=== PATIENT | female | born 1945 ===

== ENCOUNTER 2016-10-10 10:45 | Inpatient (IN) | payer MEDICAID, OTHER ==
[~2016-10-10 10:45] MED LIST: Enoxaparin 40 mg Syringe ONE; cefTRIAXone (Rocephin) 1 gm Inj ONE
[2016-10-10] MEDS ORDERED: Sodium Chloride 0.9% 1,000 ML IV STA (12:26)
[2016-10-10] MEDS ORDERED: cefTRIAXone (Rocephin) 1 gm Inj ONE (12:56)
[2016-10-10 13:30] LABS: SQUAMOUS EPITHIAL 3 /hpf (0-5); URINE BACTERIA RARE (<OCC); URINE BILIRUBIN NEGATIVE (NEGATIVE); URINE BLOOD SMALL (NEGATIVE); URINE CLARITY SLIGHTY-CLOUDY (Clear); URINE COLOR YELLOW (YELLOW); URINE GLUCOSE (UA) NEG (Normal); URINE LEUKOCYTE ESTERASE SMALL Leu/uL (Negative); URINE NITRATE NEGATIVE (NEGATIVE); URINE PROTEIN 30 mg/dL (NEGATIVE); URINE UROBILINOGEN 0.2-1.0 mg/dL (0.2-1.0)
[2016-10-10 13:41] LABS: ALBUMIN 4.3 g/dL (3.5-5.0); ALT/SGPT 32 U/L (9-52); AST/SGOT 23 U/L (14-36); BLOOD UREA NITROGEN 12 mg/dl (7-17); CALCIUM 8.8 mg/dL (8.4-10.2); GFR AFRICAN-AMERICAN > 60; GFR NON-AFRICAN AMERICAN 55
[2016-10-10 13:42] LABS: ALB/GLOB RATIO 1.3 (1.0-2.1)
[2016-10-10 13:44] LABS: HEMOGLOBIN 13.5 g/dL (12.0-16.0); MEAN CELL VOLUME 87.9 fl (81.0-99.0); MEAN CORPUSCULAR HEMOGLOBIN 28.2 pg (27.0-31.0); MEAN CORPUSCULAR HGB CONC 32.1 g/dL (33.0-37.0); RBC 4.77 Mil/uL (3.80-5.20); RED CELL DISTRIBUTION WIDTH 15.3 % (11.5-14.5); WHITE BLOOD COUNT 14.7 K/uL (4.8-10.8)
--- NOTE | 2016-10-10 14:20 | CT ---
PROCEDURE: CT Abdomen and Pelvis without intravenous contrast HISTORY: FLANK PAIN COMPARISON: 09/12/2009. TECHNIQUE: Technique. Contrast Dose: Radiation dose: Total exam DLP = 843 mGy-cm. This CT exam was performed using one or more of the following dose reduction techniques: Automated exposure control, adjustment of the mA and/or kV according to patient size, and/or use of iterative reconstruction technique. FINDINGS: LOWER THORAX: Left lower lobe subpleural infiltrate. LIVER: 3.3 centimeter right hepatic hypodense lesion probably a cyst. GALLBLADDER AND BILE DUCTS: Gallstones. PANCREAS: Unremarkable. No gross lesion or ductal dilatation. SPLEEN: Unremarkable. ADRENALS: Unremarkable. No mass. KIDNEYS AND URETERS: Horseshoe kidney. No urinary tract calculus.. No hydronephrosis. No solid mass. VASCULATURE: Unremarkable. No aortic aneurysm. BOWEL: Unremarkable. No obstruction. No gross mural thickening. APPENDIX: Unremarkable. Normal appendix. PERITONEUM: Unremarkable. No free fluid. No free air. LYMPH NODES: Unremarkable. No enlarged lymph nodes. BLADDER: Unremarkable. REPRODUCTIVE: Unremarkable. BONES: No acute fracture. OTHER FINDINGS: None. IMPRESSION: Left lower lobe pneumonia. Cholelithiasis. Horseshoe kidney. Right hepatic cyst.
[2016-10-10] MEDS: Sodium Chloride 0.9% 1,000 ML IV SCH (18:30)
[2016-10-10] MEDS: Azithromycin 500 MG in Sodium Chloride 0.9% 250 ML IVPB SCH (22:05)
--- NOTE | 2016-10-10 23:16 | CP.PCM.HP ---
History of Present Illness - History of Present Illness History of Present Illness: Hx taken from patient and patients daughters PMD: Dr Skip Carmona Patient is full code Healthcare proxy: Patient has no advance directives: She designates her daughter Marielena Bergman as the main person to make decisions for her in case she is not able to. 71 y/o F with PMhx of COPD, HTN, Horseshoe Kidney presents to ER c/o L/lower back pain and fever since last night. Patient states last night felt nauseated had 2 vomits, fever and lower back pain associated with generalized body aches that resolved today. 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 She states she hasnt eaten anything since last night and has only been drinking water today. According to her daughter her temp at home before coming to ED today was 101.9. She is also having cough since this morning but denies sputum, SOB, CP, palpitations. Patient denies dysuria, change in stools, weakness, vision changes or dizziness. Patient denies Hx of frequent UTI in the past. She has been seen by Nephrology every year and her previous admission to hosp have been due to CPOD exacerbation. ED course: T: 101, HR 101, BP WNL CBC: WBC=14.7 CMP WNL Lactic acid WNL CT abd: Pending UCx and BCx pending Toradol, Motrin, Rocephin, IV fluids PMHx: HTN, COPD, Horseshoe kidney, Hyperthyroidism Present on Admission - Present on Admission Any Indicators Present on Admission: No Review of Systems - EENT Eyes: As Per HPI Nose/Mouth/Throat: Halitosis. absent: Nasal Congestion, Nasal Obstruction - Cardiovascular Cardiovascular: absent: Chest Pain, Palpitations, Pedal Edema - Respiratory Respiratory: Cough. absent: Hemoptysis - Gastrointestinal Gastrointestinal: Nausea, Vomiting - Genitourinary Genitourinary: As Per HPI. absent: Dysuria, Hematuria (L/lower back pain), Urinary Frequency - Musculoskeletal Musculoskeletal: Back Pain - Neurological Neurological: As Per HPI Past Patient History - Infectious Disease Hx of Infectious Diseases: None - Past Social History Smoking Status: Never Smoked - CARDIAC Hx Hypercholesterolemia: Yes Hx Hypertension: Yes - PULMONARY Hx Chronic Obstructive Pulmonary Disease (COPD): Yes - PSYCHIATRIC Hx Substance Use: No Meds Allergies/Adverse Reactions: Allergies Allergy/AdvReac Type Severity Reaction Status Date / Time No Known Allergies Allergy Verified 10/01/14 13:29 Physical Exam - Constitutional Appears: Non-toxic, No Acute Distress - Eye Exam Eye Exam: EOMI, PERRL - ENT Exam ENT Exam: Mucous Membranes Moist - Neck Exam Neck exam: Positive for: Full Rom, Normal Inspection - Respiratory Exam Respiratory Exam: Decreased Breath Sounds (Bibasilar), NORMAL BREATHING PATTERN - Cardiovascular Exam Cardiovascular Exam: REGULAR RHYTHM, +S1, +S2. absent: Gallop, Rubs - GI/Abdominal Exam GI & Abdominal Exam: Normal Bowel Sounds, Soft. absent: Distended, Guarding - Extremities Exam Extremities exam: Positive for: normal inspection. Negative for: calf tenderness, pedal edema - Back Exam Back exam: CVA tenderness (L) (questionable) - Neurological Exam Neurological exam: Alert, CN II-XII Intact, Oriented x3 - Psychiatric Exam Psychiatric exam: Normal Affect, Normal Mood - Skin Skin Exam: Normal Color, Warm Results - Vital Signs Recent Vital Signs: Last Vital Signs Temp 101 F H 10/10/16 11:13 Pulse 101 H 10/10/16 11:13 Resp 20 10/10/16 11:13 BP 123/61 10/10/16 11:13 Pulse Ox 97 10/10/16 11:13 - Labs Result Diagrams: 10/10/16 13:00 10/10/16 13:00 Assessment & Plan - Assessment and Plan (Free Text) Assessment: A&P: 71 y/o F with PMHx of COPD, HTN, Horseshoe Kidney presents to ER c/o L/ lower back pain and fever -SIRS with Sepsis(No severe sepsis, no septic shock) CT abd shows L/lower lobe Pneumonia(Please see full report) Fever, Tachycardia and Leukocytosis Lactic acid WNL qSofa score 0 IV fluids NS 100mls UA: Bacteria rare, Nitrates neg, LE small f/u CBC w/differential next day AM F/U Ucx and BCx -CAP Rocephin 1g IV daily Zithromax 500mg IV daily Zofran 4mg Q6h PRN for nausea/vomiting Diet: NPO. Start liquid diet at dinner and advance as tolerated Toradol 15mg IV q6h PRN for moderate. Severe pain contact Tylenol 650mg q6h PRN for fever -COPD No SOB, O2sat WNL Hold ProAir HFA Duoneb Q6h PRN for SOB Singulair 10mg daily C/w Advair diskus 1 puff BID -HTN essential controlled C/w Valsartan/Amlodipine 160/5mg daily -Hx of Hypercholesterolemia C/W Lovastatin 40mg daily. -Prophylactic measures Lovenox 40mg daily Florastor BID
[2016-10-11] MEDS ORDERED: Albuterol-Ipratrop 3 mg / 0.5 (3 ml) UD INH PRN (04:04)
[2016-10-11] MEDS: Sodium Chloride 0.9% 1,000 ML IV SCH (04:05)
[2016-10-11 08:26] LABS: BASO % 0.2 % (0.0-2.0); EOS % 0.1 % (0.0-4.0); HEMOGLOBIN 12.7 g/dL (12.0-16.0); LYMPH # 1.8 K/uL (1.0-4.3); LYMPH % 10.6 % (20.0-40.0); MEAN CORPUSCULAR HEMOGLOBIN 28.3 pg (27.0-31.0); MEAN CORPUSCULAR HGB CONC 32.2 g/dL (33.0-37.0); MEAN PLATELET VOLUME 10.4 fl (7.2-11.7); NEUT # 14.2 K/uL (1.8-7.0); NEUT % 83.1 % (50.0-75.0); PLATELET COUNT 161 K/uL (130-400); RBC 4.46 Mil/uL (3.80-5.20); RED CELL DISTRIBUTION WIDTH 15.6 % (11.5-14.5); WHITE BLOOD COUNT 17.1 K/uL (4.8-10.8)
[2016-10-11] MEDS: Fluticasone-Salmeterol 500-50mcg Diskus IH SCH ×2 (08:43→20:34)
[2016-10-11] MEDS: Enoxaparin 40 mg Syringe SC SCH (08:45)
[2016-10-11] MEDS: Saccharomyces Boulardi 250 mg Cap PO SCH ×2 (08:45→17:04)
--- NOTE | 2016-10-11 09:16 | CP.PCM.PN ---
Subjective - Date & Time of Evaluation Date of Evaluation: 10/11/16 Time of Evaluation: 08:30 - Subjective Subjective: Patient seen and examined at bedside. She is lying upright in bed comfortably enjoying breakfast. Patient reports mild/moderate left sided back pack which has been associated with and aggravated by a non-productive cough. She has been afebrile since her initial fever of 101.0 in the ED. She further denies fevers, chills, chest pain, sob, abdominal pain, dysuria, nausea or vomiting. Objective - Vital Signs/Intake and Output Vital Signs (last 24 hours): Temp Pulse Resp BP Pulse Ox 98.8 F 74 18 115/68 96 10/11/16 07:59 10/11/16 07:59 10/11/16 07:59 10/11/16 07:59 10/11/16 07:59 - Medications Medications: Current Medications Acetaminophen (Tylenol 325mg Tab) 650 mg PO Q6 PRN PRN Reason: Temp >101 Albuterol/Ipratropium (Duoneb 3 Mg/0.5 Mg (3 Ml) Ud) 3 ml INH RQ6 PRN PRN Reason: Shortness of Breath Enoxaparin Sodium (Lovenox) 40 mg SC DAILY [facility] PRN Reason: Protocol Last Admin: 10/11/16 08:45 Dose: 40 mg Azithromycin 500 mg/ Sodium (Chloride) 250 mls @ 250 mls/hr IVPB Q24H [facility] Last Admin: 10/10/16 22:05 Dose: 250 mls/hr Ceftriaxone Sodium 1 gm/ (Sodium Chloride) 100 mls @ 100 mls/hr IVPB DAILY [facility] Last Admin: 10/11/16 08:46 Dose: 100 mls/hr Ketorolac Tromethamine (Toradol) 15 mg IM Q6 PRN PRN Reason: Pain, moderate (4-7) Montelukast Sodium (Singulair) 10 mg PO DAILY [facility] Last Admin: 10/11/16 08:48 Dose: 10 mg Ondansetron HCl (Zofran Inj) 4 mg IVP Q6 PRN PRN Reason: Nausea/Vomiting Saccharomyces Boulardii (Florastor) 250 mg PO BID [facility] Last Admin: 10/11/16 08:45 Dose: 250 mg Fluticasone/Salmeterol (Advair Diskus 500/50) 1 puff IH Q12 [facility] Last Admin: 10/11/16 08:43 Dose: 1 puff Valsartan (Diovan) 160 mg PO DAILY [facility] Last Admin: 10/11/16 08:44 Dose: 160 mg - Labs Labs: 10/11/16 06:30 - Constitutional Appears: Non-toxic, No Acute Distress - Head Exam Head Exam: ATRAUMATIC, NORMAL INSPECTION, NORMOCEPHALIC - Eye Exam Eye Exam: EOMI - ENT Exam ENT Exam: Mucous Membranes Moist - Respiratory Exam Respiratory Exam: Chest Wall Tenderness (Posterior lower chest wall tenderness) Additional comments: B/L air entry present with crackles localized to left lung base. No wheezing or signs of respiratory distress present. - Cardiovascular Exam Cardiovascular Exam: REGULAR RHYTHM, RRR, +S1, +S2. absent: Murmur - GI/Abdominal Exam GI & Abdominal Exam: Soft, Normal Bowel Sounds. absent: Distended, Tenderness Additional comments: No suprapubic tenderness - Extremities Exam Extremities Exam: absent: Calf Tenderness, Pedal Edema - Back Exam Back Exam: paraspinal tenderness (Left lower thoracic/lumbar ) - Neurological Exam Neurological Exam: Awake, Oriented x3 - Psychiatric Exam Psychiatric exam: Normal Affect, Normal Mood - Skin Skin Exam: Dry, Normal Color, Warm Assessment and Plan - Assessment and Plan (Free Text) Assessment: 71 y/o F with PMH including COPD, HTN, Horseshoe Kidney presented to ER with c/ o left lower back pain and fever x1 day. Due to fever, tachycardia and elevated WBC associated with CT findings of left lower lobe pneumonia, patient was admitted for sepsis due to pneumonia. Her sepsis has since resolved however she continues to experience cough and left lower back pain. Plan: Community Acquired Left lower lobe pneumonia -CT abdomen shows left lower lobe subpleural infiltrate c/w pneumonia -Leukocytosis: 17.1 -Tmax 24 hrs: 101.0 on 10/10/16 @11:13 -Patient currently afebrile -Rocephin 1g IV daily, current day 2 -Zithromax 500mg IV daily, current day 2 -Toradol 10mg PO q6h PRN for moderate pain. Severe pain contact -Tylenol 650mg q6h PRN for fever COPD -Stable without any active SOB -O2 sat WNL -Hold ProAir HFA -Duoneb Q6h PRN for SOB -Singulair 10mg daily -Advair diskus 1 puff BID HTN essential -controlled -Continue Valsartan/Amlodipine 160/5mg daily Hypercholesterolemia -Continue Lovastatin 40mg daily. SIRS with Sepsis (No severe sepsis, no septic shock) -Resolved DVT Prophylaxis -Lovenox 40mg SC daily
--- NOTE | 2016-10-11 09:51 | RAD ---
HISTORY: MD order COMPARISON: Comparison chest 10/28/2015 TECHNIQUE: Chest PA and lateral FINDINGS: LUNGS: There is poorly defined opacity in the left lung base which may represent at atelectasis and/or infiltrate. Small concomitant left effusion not excluded. Central pulmonary vascular slightly congested in appearance PLEURA: No pneumothorax apparent. CARDIOVASCULAR: Normal. OSSEOUS STRUCTURES: No significant abnormalities. VISUALIZED UPPER ABDOMEN: Normal. OTHER FINDINGS: None. IMPRESSION: There is poorly defined opacity in the left lung base which may represent at atelectasis and/or infiltrate. Small concomitant left effusion not excluded. Central pulmonary vascular slightly congested in appearance
[2016-10-11 10:06] LABS: BANDS 9 % (0-2); LYMPHOCYTE 14 % (20-50); METAMYELOCYTE 1 % (0-0); MONOCYTE 5 % (0-10); MYELOCYTE 1 % (0-0); NEUTROPHIL 69 % (42-75); PLATELET ESTIMATE NORMAL (NORMAL); REACTIVE LYMPHOCYTES 1 % (0-0); TOTAL CELLS COUNTED 100
[2016-10-11 10:08] LABS: ANISOCYTOSIS SLIGHT
[2016-10-11 10:09] LABS: GIANT PLATELETS PRESENT; LARGE PLATELETS PRESENT
[2016-10-11] MEDS: Azithromycin 500 MG in Sodium Chloride 0.9% 250 ML IVPB SCH (20:33)
[2016-10-12 06:39] LABS: BASO % 0.3 % (0.0-2.0); EOS # 0.1 K/uL (0.0-0.7); EOS % 0.9 % (0.0-4.0); HEMOGLOBIN 12.3 g/dL (12.0-16.0); LYMPH # 1.7 K/uL (1.0-4.3); MEAN CELL VOLUME 87.8 fl (81.0-99.0); MEAN CORPUSCULAR HEMOGLOBIN 28.3 pg (27.0-31.0); MEAN CORPUSCULAR HGB CONC 32.2 g/dL (33.0-37.0); MEAN PLATELET VOLUME 10.5 fl (7.2-11.7); NEUT # 11.3 K/uL (1.8-7.0); NEUT % 79.8 % (50.0-75.0); RBC 4.36 Mil/uL (3.80-5.20); RED CELL DISTRIBUTION WIDTH 15.6 % (11.5-14.5); WHITE BLOOD COUNT 14.1 K/uL (4.8-10.8)
[2016-10-12 06:51] LABS: BLOOD UREA NITROGEN 10 mg/dl (7-17); CALCIUM 8.7 mg/dL (8.4-10.2); GFR AFRICAN-AMERICAN > 60; GFR NON-AFRICAN AMERICAN 55
--- NOTE | 2016-10-12 06:54 | CP.PCM.PN ---
Subjective - Date & Time of Evaluation Date of Evaluation: 10/12/16 Time of Evaluation: 07:30 - Subjective Subjective: Patient seen and examined at bedside, in no acute distress. Reports fever last night, alleviated by tylenol, persistent intermittent cough, left back/chest / rib pain when she coughs also persists. Otherwise pt is tolerating small meals, has normal urine and stool output. Denies weakness, dizziness, SOB or nausea/ vomiting. Objective - Vital Signs/Intake and Output Vital Signs (last 24 hours): Temp Pulse Resp BP Pulse Ox 99.1 F 84 19 112/71 96 10/12/16 05:09 10/12/16 05:09 10/12/16 05:09 10/12/16 05:09 10/12/16 05:09 Intake and Output: 10/11/16 10/12/16 18:59 06:59 Intake Total 2500 Balance 2500 - Medications Medications: Current Medications Acetaminophen (Tylenol 325mg Tab) 650 mg PO Q6 PRN PRN Reason: Temp >101 Last Admin: 10/11/16 20:28 Dose: 650 mg Albuterol/Ipratropium (Duoneb 3 Mg/0.5 Mg (3 Ml) Ud) 3 ml INH RQ6 PRN PRN Reason: Shortness of Breath Amlodipine Besylate (Norvasc) 5 mg PO DAILY [facility] Last Admin: 10/11/16 10:50 Dose: 5 mg Atorvastatin Calcium (Lipitor) 10 mg PO DAILY [facility] Last Admin: 10/11/16 10:49 Dose: 10 mg Enoxaparin Sodium (Lovenox) 40 mg SC DAILY [facility] PRN Reason: Protocol Last Admin: 10/11/16 08:45 Dose: 40 mg Azithromycin 500 mg/ Sodium (Chloride) 250 mls @ 250 mls/hr IVPB Q24H [facility] Last Admin: 10/11/16 20:33 Dose: 250 mls/hr Ceftriaxone Sodium 1 gm/ (Sodium Chloride) 100 mls @ 100 mls/hr IVPB DAILY [facility] Last Admin: 10/11/16 08:46 Dose: 100 mls/hr Ketorolac Tromethamine (Toradol) 10 mg PO Q6 PRN PRN Reason: Pain, moderate (4-7) Montelukast Sodium (Singulair) 10 mg PO DAILY [facility] Last Admin: 10/11/16 08:48 Dose: 10 mg Ondansetron HCl (Zofran Inj) 4 mg IVP Q6 PRN PRN Reason: Nausea/Vomiting Saccharomyces Boulardii (Florastor) 250 mg PO BID [facility] Last Admin: 10/11/16 17:04 Dose: 250 mg Fluticasone/Salmeterol (Advair Diskus 500/50) 1 puff IH Q12 [facility] Last Admin: 10/11/16 20:34 Dose: 1 puff Valsartan (Diovan) 160 mg PO DAILY [facility] Last Admin: 10/11/16 08:44 Dose: 160 mg - Labs Labs: 10/11/16 06:30 - Constitutional Appears: No Acute Distress - Head Exam Head Exam: ATRAUMATIC, NORMOCEPHALIC - Eye Exam Eye Exam: EOMI, PERRL - ENT Exam ENT Exam: Mucous Membranes Moist - Neck Exam Neck Exam: Full ROM. absent: Lymphadenopathy - Respiratory Exam Respiratory Exam: NORMAL BREATHING PATTERN (with left lower lobe crackles) - Cardiovascular Exam Cardiovascular Exam: REGULAR RHYTHM, +S1, +S2 - GI/Abdominal Exam GI & Abdominal Exam: Soft (obese), Normal Bowel Sounds. absent: Tenderness - Extremities Exam Extremities Exam: Full ROM. absent: Calf Tenderness, Pedal Edema - Back Exam Back Exam: CVA tenderness (L), Full ROM. absent: CVA tenderness (R) - Neurological Exam Neurological Exam: Alert, Awake, CN II-XII Intact, Oriented x3 - Psychiatric Exam Psychiatric exam: Normal Affect, Normal Mood - Skin Skin Exam: Dry, Intact, Warm Assessment and Plan - Assessment and Plan (Free Text) Assessment: 71 y/o F with PMH including COPD, HTN, Horseshoe Kidney presented to ER with c/ o left lower back pain and fever x1 day. Due to fever, tachycardia and elevated WBC associated with CT findings of left lower lobe pneumonia, patient was admitted for sepsis due to pneumonia. Her sepsis has since resolved however she continues to experience cough and left lower back pain, had fever last night of Tmax 101.5 F. Plan: Community Acquired Left lower lobe pneumonia -CT abdomen shows left lower lobe subpleural infiltrate c/w pneumonia -Leukocytosis:14. -Tmax 24 hrs: 101.5 on 10/11/16 @20:30 -Rocephin 1g IV daily, current day 3 -Zithromax 500mg IV daily, current day 3 -Toradol 10mg PO q6h PRN for moderate pain. Severe pain contact MDLaisha -Tylenol 650mg q6h PRN for fever COPD -Stable without any active SOB -O2 sat WNL -Hold ProAir HFA -Duoneb Q6h PRN for SOB -Singulair 10mg daily -Advair diskus 1 puff BID HTN essential -controlled -Continue Valsartan/Amlodipine 160/5mg daily Hypercholesterolemia -Continue Lovastatin 40mg daily. DVT Prophylaxis -Lovenox 40mg SC daily
[2016-10-12] MEDS: Fluticasone-Salmeterol 500-50mcg Diskus IH SCH ×2 (09:08→21:41)
[2016-10-12] MEDS: Saccharomyces Boulardi 250 mg Cap PO SCH ×2 (09:09→16:30)
[2016-10-12] MEDS: Enoxaparin 40 mg Syringe SC SCH (09:10)
[2016-10-12 11:37] LABS: VENOUS BLOOD GAS BASE EXCESS -0.2 mmol/L (0.0-2.0); VENOUS BLOOD GAS PCO2 44 mmHg (40-60); VENOUS BLOOD GAS PO2 19 mm/Hg (30-55); VENOUS BLOOD PH 7.37 (7.32-7.43)
[2016-10-12] MEDS: Azithromycin 500 MG in Sodium Chloride 0.9% 250 ML IVPB SCH (21:42)
[2016-10-13 06:10] LABS: BASO % 0.4 % (0.0-2.0); EOS # 0.2 K/uL (0.0-0.7); EOS % 1.9 % (0.0-4.0); LYMPH # 1.9 K/uL (1.0-4.3); MEAN CELL VOLUME 87.3 fl (81.0-99.0); MEAN CORPUSCULAR HEMOGLOBIN 28.3 pg (27.0-31.0); MEAN CORPUSCULAR HGB CONC 32.4 g/dL (33.0-37.0); MEAN PLATELET VOLUME 10.2 fl (7.2-11.7); MONO # 0.9 K/uL (0.0-0.8); MONO % 7.8 % (0.0-10.0); NEUT # 8.1 K/uL (1.8-7.0); NEUT % 72.9 % (50.0-75.0); RBC 4.26 Mil/uL (3.80-5.20); RED CELL DISTRIBUTION WIDTH 15.3 % (11.5-14.5); WHITE BLOOD COUNT 11.1 K/uL (4.8-10.8)
--- NOTE | 2016-10-13 08:14 | CP.PCM.DIS ---
Provider - Provider Date of Admission: 10/10/16 22:09 Attending physician: Yocasta Sahni MD Primary care physician: Skip Bell Time Spent in preparation of Discharge (in minutes): 30 Diagnosis - Discharge Diagnosis (1) Pneumonia Status: Acute Priority: Low (2) Sepsis Status: Resolved Priority: Low Hospital Course - Lab Results Lab Results: Most Recent Lab Values WBC 11.1 K/uL (4.8-10.8) H 10/13/16 05:00 RBC 4.26 Mil/uL (3.80-5.20) 10/13/16 05:00 Hgb 12.0 g/dL (12.0-16.0) 10/13/16 05:00 Hct 37.1 % (34.0-47.0) 10/13/16 05:00 MCV 87.3 fl (81.0-99.0) 10/13/16 05:00 MCH 28.3 pg (27.0-31.0) 10/13/16 05:00 MCHC 32.4 g/dL (33.0-37.0) L 10/13/16 05:00 RDW 15.3 % (11.5-14.5) H 10/13/16 05:00 Plt Count 194 K/uL (130-400) 10/13/16 05:00 MPV 10.2 fl (7.2-11.7) 10/13/16 05:00 Neut % (Auto) 72.9 % (50.0-75.0) 10/13/16 05:00 Lymph % (Auto) 17.0 % (20.0-40.0) L 10/13/16 05:00 [place] % (Auto) 7.8 % (0.0-10.0) 10/13/16 05:00 Eos % (Auto) 1.9 % (0.0-4.0) 10/13/16 05:00 Baso % (Auto) 0.4 % (0.0-2.0) 10/13/16 05:00 Neut # 8.1 K/uL (1.8-7.0) H 10/13/16 05:00 Lymph # 1.9 K/uL (1.0-4.3) 10/13/16 05:00 [place] # 0.9 K/uL (0.0-0.8) H 10/13/16 05:00 Eos # 0.2 K/uL (0.0-0.7) 10/13/16 05:00 Baso # 0.0 K/uL (0.0-0.2) 10/13/16 05:00 Neutrophils % (Manual) 69 % (42-75) 10/11/16 06:30 Band Neutrophils % 9 % (0-2) H 10/11/16 06:30 Lymphocytes % (Manual) 14 % (20-50) L 10/11/16 06:30 Reactive Lymphs % 1 % (0-0) H 10/11/16 06:30 Monocytes % (Manual) 5 % (0-10) 10/11/16 06:30 Metamyelocytes % 1 % (0-0) H 10/11/16 06:30 Myelocytes % 1 % (0-0) H 10/11/16 06:30 Platelet Estimate Normal (NORMAL) 10/11/16 06:30 Large Platelets Present 10/11/16 06:30 Giant Platelets Present 10/11/16 06:30 Anisocytosis (manual) Slight 10/11/16 06:30 pO2 19 mm/Hg (30-55) L 10/10/16 12:15 VBG pH 7.37 (7.32-7.43) 10/10/16 12:15 VBG pCO2 44 mmHg (40-60) 10/10/16 12:15 VBG HCO3 23.1 mmol/L 10/10/16 12:15 VBG Total CO2 26.8 mmol/L (22-28) 10/10/16 12:15 VBG O2 Sat (Calc) 38.7 % (40-65) L 10/10/16 12:15 VBG Base Excess -0.2 mmol/L (0.0-2.0) L 10/10/16 12:15 VBG Potassium 4.2 mmol/L (3.6-5.2) 10/10/16 12:15 Sodium 137.0 mmol/L (132-148) 10/10/16 12:15 Chloride 104.0 mmol/L (98-107) 10/10/16 12:15 Glucose 113 mg/dL (65-105) H 07/01/17 12:15 Lactate 1.6 mmol/L (0.7-2.1) 10/10/16 12:15 FiO2 21.0 % 10/10/16 12:15 Sodium 141 mmol/l (132-148) 10/12/16 05:00 Potassium 4.1 MMOL/L (3.6-5.0) 10/12/16 05:00 Chloride 107 mmol/L (98-107) 10/12/16 05:00 Carbon Dioxide 26 mmol/L (22-30) 10/12/16 05:00 Anion Gap 13 (10-20) 10/12/16 05:00 BUN 10 mg/dl (7-17) 10/12/16 05:00 Creatinine 1.0 mg/dL (0.7-1.2) 10/12/16 05:00 Est GFR ( Amer) > 60 10/12/16 05:00 Est GFR (Non-Af Amer) 55 10/12/16 05:00 Random Glucose 91 mg/dL (65-105) 10/12/16 05:00 Calcium 8.7 mg/dL (8.4-10.2) 10/12/16 05:00 Total Bilirubin 1.1 mg/dl (0.2-1.3) 10/10/16 13:00 AST 23 U/L (14-36) 10/10/16 13:00 ALT 32 U/L (9-52) 10/10/16 13:00 Alkaline Phosphatase 82 U/L (38-126) 10/10/16 13:00 Total Protein 7.5 G/DL (6.3-8.2) 10/10/16 13:00 Albumin 4.3 g/dL (3.5-5.0) 10/10/16 13:00 Globulin 3.2 gm/dL (2.2-3.9) 10/10/16 13:00 Albumin/Globulin Ratio 1.3 (1.0-2.1) 10/10/16 13:00 Venous Blood Potassium 4.2 mmol/L (3.6-5.2) 10/10/16 12:15 Urine Color Yellow (YELLOW) 10/10/16 13:00 Urine Clarity Slighty-cloudy (Clear) 10/10/16 13:00 Urine pH 6.0 (5.0-8.0) 10/10/16 13:00 Ur Specific [place] 1.013 (1.003-1.030) 10/10/16 13:00 Urine Protein 30 mg/dL (NEGATIVE) 10/10/16 13:00 Urine Glucose (UA) Neg mg/dL (Normal) 10/10/16 13:00 Urine Ketones Trace mg/dL (NEGATIVE) 10/10/16 13:00 Urine Blood Small (NEGATIVE) 10/10/16 13:00 Urine Nitrate Negative (NEGATIVE) 10/10/16 13:00 Urine Bilirubin Negative (NEGATIVE) 10/10/16 13:00 Urine Urobilinogen 0.2-1.0 mg/dL (0.2-1.0) 10/10/16 13:00 Ur Leukocyte Esterase Small Radha/uL (Negative) 10/10/16 13:00 Urine RBC (Auto) 2 /hpf (0-3) 10/10/16 13:00 Urine Microscopic WBC 5 /hpf (0-5) 10/10/16 13:00 Ur Squamous Epith Cells 3 /hpf (0-5) 10/10/16 13:00 Urine Bacteria Rare (<OCC) 10/10/16 13:00 - Hospital Course Hospital Course: 71 y/o F admitted for sepsis secondary to pneumonia with PMHx of COPD, HTN, Horseshoe Kidney. Patients' sepsis resolved s/p treatment with IV fluids and 4 days of IV antibiotics, she has been afebrile x 40hrs, symptoms of left lower back pain and cough have improved significantly. Patient was discharged stable with Rx for Azithromycin 500mg PO QD x 5days, Amoxicillin 1gm PO TID x 5 days, Florastor 250mg PO BID x 5 days, and with instructions to follow up at [facility] with PMD Dr. Carmona in 1 week. - Date & Time of H&P Date of H&P: 10/10/16 Time of H&P: 23:13 Discharge Exam - Head Exam Head Exam: ATRAUMATIC, NORMOCEPHALIC - Eye Exam Eye Exam: EOMI, PERRL - ENT Exam ENT Exam: Mucous Membranes Moist - Neck Exam Neck exam: Full Rom (lymphadenopathy) - Respiratory Exam Respiratory Exam: Clear to PA & Lateral, NORMAL BREATHING PATTERN - Cardiovascular Exam Cardiovascular Exam: REGULAR RHYTHM, +S1, +S2 - GI/Abdominal Exam GI & Abdominal Exam: Normal Bowel Sounds, Soft. absent: Tenderness - Extremities Exam Extremities exam: full ROM (no calf tenderness, no pedal edema) - Back Exam Back exam: absent: CVA tenderness (L), CVA tenderness (R) - Neurological Exam Neurological exam: Alert, CN II-XII Intact, Oriented x3 - Psychiatric Exam Psychiatric exam: Normal Affect, Normal Mood - Skin Skin Exam: Dry, Intact, Warm Discharge Plan - Discharge Medications Prescriptions: Amoxicillin 1 gm PO TID #15 tab Azithromycin [Zithromax Tri-Lemuel] 500 mg PO DAILY #5 tablet Saccharomyces Boulardi [Florastor] 250 mg PO BID #10 cap - Follow Up Plan Condition: STABLE Disposition: HOME/ ROUTINE Patient education suggested?: Yes Additional Instructions: -Take Rx as prescribed -Azithromycin 500mg PO QD x 5days, -Amoxicillin 1gm PO TID x 5 days -FLorastor 250mg PO BID x 5 days -Resume the rest of your home meds -Call [phone] to make appt for follow up at [facility] with PMD Dr. Carmona in 1 week. Referrals: Skip Carmona MD [Family Provider] -
[2016-10-13] MEDS: Saccharomyces Boulardi 250 mg Cap PO SCH ×2 (08:37→16:11)
[2016-10-13] MEDS: Fluticasone-Salmeterol 500-50mcg Diskus IH SCH (08:39)
[2016-10-13] MEDS: Enoxaparin 40 mg Syringe SC SCH (08:39)
--- NOTE | 2016-10-13 11:34 | RAD ---
HISTORY: pneumonia COMPARISON: 10/11/2016 TECHNIQUE: Chest PA and lateral FINDINGS: LUNGS: Hazy opacity in the left lung base which could represent a small pleural effusion with associated compressive atelectasis and/ pneumonia. PLEURA: As above. CARDIOVASCULAR: Increase cardiomediastinal silhouette. OSSEOUS STRUCTURES: The osseous structures demonstrate degenerative changes. VISUALIZED UPPER ABDOMEN: Upper abdomen is suboptimally evaluated. OTHER FINDINGS: None. IMPRESSION: Hazy opacity in the left lung base which could represent a small pleural effusion with associated compressive atelectasis and/or pneumonia.
[2016-10-13 16:01] VITALS: BP 115/65; PULSE 77; RESP 18; TEMP 98.6; O2SAT 94
[2016-10-13] MEDS: Azithromycin 500 MG in Sodium Chloride 0.9% 250 ML IVPB SCH (16:11)
--- NOTE | 2016-10-15 06:51 | CARD ---
APPROVED REPORT EKG Measurement Heart [id number] <Conclusion> Normal sinus rhythm Normal ECG
== END 2016-10-13 22:51 | disposition home or self-care (01) | DRG 584 ==
LOC: H.ER 10:45 → H.TEL 22:09
PROVIDERS: ADMIT Family Medicine Geriatric Medicine; ATTEND Family Medicine Geriatric Medicine
DX: A41.9 Sepsis, unspecified organism (principal); J18.9 Pneumonia, unspecified organism; J44.0 Chronic obstructive pulmonary disease with (acute) lower respiratory infection; E05.90 Thyrotoxicosis, unspecified without thyrotoxic crisis or storm; I10 Essential (primary) hypertension; E78.00 Pure hypercholesterolemia, unspecified; Q63.1 Lobulated, fused and horseshoe kidney

== ENCOUNTER 2017-05-11 12:33 | Emergency (ER) | payer MEDICARE, MEDICAID ==
[2017-05-11] MEDS ORDERED: Albuterol-Ipratrop 3 mg / 0.5 (3 ml) UD ONE (13:23)
[2017-05-11] MEDS: Albuterol-Ipratrop 3 mg / 0.5 (3 ml) UD INH STA (13:31)
--- NOTE | 2017-05-11 13:37 | ED PDOC ---
HPI: General Adult Time Seen by Provider: 05/11/17 12:52 Chief Complaint (Nursing): Flu-like Symptoms Chief Complaint (Provider): "i have fever and weakness" History Per: Patient, Family History/Exam Limitations: no limitations Onset/Duration Of Symptoms: Days Have you had recent travel within the past 21 days to any of the following countries: [place], [place], [place] or [place]?: No Current Symptoms Are (Timing): Still Present Severity: Mild Additional Complaint(s): 71 y/o female, hx of HTN, HLD, Hypothyroid, and mild intermittent asthma presents for evaluation of fever, nonproductive cough, and generalized malaise. Pt reports she was in her good health last week, she visited her sister, whom was babysitting her grandson who was ill at the time with an unspecified viral illness. Pt reports she slept in his bed. On Wednesday, the pt began to develop a dry, nonproductive cough, with fever and generalized weakness. She had mild throat pain at the time as well. For the past several days she has been self treating herself with Motrin and PO fluids. She denies any SOB or any need to use her albuterol more frequently. She was evaluated at the [facility] and sent over for further evaluation. She denies any chills, night sweats, headaches, changes in vision, CP/SOB/Palpitations, V/D/C, urinary symptoms, numbness/tingling. Past Medical History Reviewed: Historical Data, Nursing Documentation, Vital Signs Vital Signs: Last Vital Signs Temp 100.9 F H 05/11/17 16:21 Pulse 101 H 05/11/17 16:21 Resp 20 05/11/17 16:21 BP 127/75 05/11/17 16:21 Pulse Ox 93 L 05/11/17 16:21 - Medical History PMH: COPD, HTN, Hypercholesterolemia - Family History Family History: States: Unknown Family Hx - Home Medications Home Medications: Ambulatory Orders Medication Instructions Recorded Albuterol Sulfate [Proair Hfa] 1 puff IH Q12 10/11/16 Amlodipine/Valsartan 1 tab PO DAILY 10/11/16 [Amlodipine-Valsartan 5-160 mg] Lovastatin 40 mg PO DAILY 10/11/16 Montelukast Sodium [Singulair] 10 mg PO DAILY 10/11/16 Salmeterol Xinafoate/Fluticaso 1 puff IH Q12 10/11/16 [Advair Hfa 230-21] - Allergies Allergies/Adverse Reactions: Allergies Allergy/AdvReac Type Severity Reaction Status Date / Time No Known Allergies Allergy Verified 05/11/17 12:35 Review of Systems ROS Statement: Except As Marked, All Systems Reviewed And Found Negative Physical Exam - Reviewed Nursing Documentation Reviewed: Yes Vital Signs Reviewed: Yes - Physical Exam Appears: Positive for: Non-toxic, No Acute Distress Head Exam: Positive for: ATRAUMATIC, NORMAL INSPECTION Skin: Positive for: Warm, Dry. Negative for: Diaphoresis, Pallor, Rash Eye Exam: Positive for: EOMI, PERRL. Negative for: Conjunctival injection ENT: Positive for: Normal ENT Inspection. Negative for: Sinus Pain/Drainage, Nasal Congestion Neck: Positive for: Painless ROM, Supple Cardiovascular/Chest: Positive for: Regular Rate, Rhythm. Negative for: JVD, Murmur Respiratory: Positive for: Decreased Breath Sounds, Wheezing (scattered exp wheezes ). Negative for: Crackles, Rales, Rhonchi, Respiratory Distress Pulses-Radial (L): 2+ Pulses-Radial (R): 2+ Gastrointestinal/Abdominal: Positive for: Normal Exam, Bowel Sounds (normal ), Soft. Negative for: Tenderness Extremity: Positive for: Capillary Refill (<2s). Negative for: Pedal Edema, Calf Tenderness Lymphatic: Negative for: Adenopathy Neurologic/Psych: Positive for: Alert, connie scratcher II-XII, Oriented. Negative for: Motor/Sensory Deficits - Laboratory Results Result Diagrams: 05/11/17 13:56 - ECG O2 Sat by Pulse Oximetry: 96 - Progress ED Course And Treament: cbc cmp rapid flu cxr duoneb x1 tylenol 650mg re-evaluated pt reports feeling better, flu B postive, CXR negative for any active disease. contacted lab for cbc, white count: 4.9 as per laboratory manager. Disposition - Clinical Impression Clinical Impression: Influenza A - Patient ED Disposition Is Patient to be Admitted: No - Disposition Referrals: Skip Carmona MD [Staff Provider] - Disposition: Routine/Home Disposition Time: 16:15 Condition: IMPROVED Additional Instructions: get plenty of rest drink plenty of fluids Motrin or Advil as needed for fever follow up with your primary medical doctor in 2-3 days any worsening of symptoms, chest pain, fever come back to ER for evaluation Instructions: Influenza (ED) Forms: [employer] (Finnish)
[2017-05-11 14:58] LABS: ALB/GLOB RATIO 1.1 (1.0-2.1); ALBUMIN 4.5 g/dL (3.5-5.0); ALT/SGPT 33 U/L (9-52); AST/SGOT 48 U/L (14-36); BLOOD UREA NITROGEN 12 mg/dl (7-17); GFR AFRICAN-AMERICAN > 60; GFR NON-AFRICAN AMERICAN 55
--- NOTE | 2017-05-11 15:59 | RAD ---
PROCEDURE: CHEST RADIOGRAPH, 1 VIEW HISTORY: decreased breath sounds COMPARISON: 10/13/2016. FINDINGS: LUNGS: The lungs are well inflated and clear. PLEURA: No pneumothorax or pleural fluid seen. CARDIOVASCULAR: Normal. OSSEOUS STRUCTURES: No significant abnormalities. VISUALIZED UPPER ABDOMEN: Normal. OTHER FINDINGS: None. IMPRESSION: No active pulmonary disease.
[2017-05-11 16:21] VITALS: BP 127/75; PULSE 101; RESP 20; TEMP 100.9
[2017-05-11 16:26] VITALS: O2SAT 96
== END 2017-05-11 17:07 | disposition home or self-care (01) ==
LOC: H.ER 12:33
DX: J11.1 Influenza due to unidentified influenza virus with other respiratory manifestations (principal); E03.9 Hypothyroidism, unspecified; E78.00 Pure hypercholesterolemia, unspecified; I10 Essential (primary) hypertension; J45.20 Mild intermittent asthma, uncomplicated; J44.9 Chronic obstructive pulmonary disease, unspecified